=== PATIENT | male | born 1960 | race Two or more races ===

== ENCOUNTER 2018-02-21 13:22 | Emergency (ER) | payer OTHER ==
[~2018-02-21] VITALS: Ht 182.9 cm; Wt 101.3 kg
[2018-02-21] MEDS ORDERED: OXYcodone/APAP 5/325MG TABLET ONE (13:51)
[2018-02-21] MEDS ORDERED: OXYcodone/APAP 5/325MG TABLET PO ONE (14:00)
[2018-02-21 14:09] VITALS: BP 135/78
== END 2018-02-21 14:23 | disposition home or self-care (01) ==
LOC: ED 14:08
DX: B02.9 Zoster without complications (principal)
CPT/HCPCS: 99283